=== PATIENT | female | born 1940 | race Caucasian/White ===

== ENCOUNTER → 2017-07-23 | Outpatient (CLI) | payer OTHER, BC | LOC: FIMAGING 11:09 | PROVIDERS: ATTEND Family Medicine | DX: Z12.31 Encounter for screening mammogram for malignant neoplasm of breast (principal) | CPT/HCPCS: G0202 ==

== ENCOUNTER → 2017-07-31 | Outpatient (CLI) | payer OTHER, BC | LOC: FIMAGING 12:55 | PROVIDERS: ATTEND Family Medicine | DX: R91.1 Solitary pulmonary nodule (principal); N20.0 Calculus of kidney; E04.1 Nontoxic single thyroid nodule; M81.0 Age-related osteoporosis without current pathological fracture; Z79.899 Other long term (current) drug therapy ==

== ENCOUNTER → 2017-09-15 | Outpatient (CLI) | payer OTHER, BC | LOC: FIMAGING 10:20 | PROVIDERS: ATTEND Family Medicine | DX: Z13.820 Encounter for screening for osteoporosis (principal); M81.0 Age-related osteoporosis without current pathological fracture ==

== ENCOUNTER 2017-10-20 10:02 | Emergency (ER) | payer OTHER, BC ==
[2017-10-20 10:41] LABS: PLATELET COUNT 162 10^3/uL (150-400)
[2017-10-20 11:38] VITALS: BP 139/64; PULSE 59; RESP 14; TEMP 97.5; O2SAT 95
--- NOTE | 2017-10-20 11:51 | EDPHY ---
H & P Stated Complaint: lump left side of neck, pain same location 2 weeks ago Time Seen by Provider: 10/20/17 10:20 HPI/ROS: Chief Complaint: Lump on neck History of Present Illness: This is a 77 year old female with ongoing thyroid issues who presents to the emergency department for evaluation of a nodule on her neck. She reports it developed approximately 3 days ago. It is slightly tender. She denies precipitating factors. She denies alleviating or aggravating factors. No associated signs or symptoms including no fever, no trouble talking or swallowing, no trouble breathing. She reports she is flying to the [facility] for a health evaluation next Sunday. Review of Systems: A 10 point review of systems was obtained and other than described above was negative. - Personal History Current Tetanus/Diphtheria Vaccine: Yes Current Tetanus Diphtheria and Acellular Pertussis (TDAP): Yes Tetanus Vaccine Date: 2008 - Medical/Surgical History Hx Asthma: No Hx Chronic Respiratory Disease: No Hx Diabetes: No Hx Cardiac Disease: No Hx Renal Disease: No Hx Cirrhosis: No Hx Alcoholism: No Hx HIV/AIDS: No Hx Splenectomy or Spleen Trauma: No Other PMH: hypothyroid, osteoporosis. back pain, foot sx - Social History Smoking Status: Never smoked - Physical Exam Exam: General: Alert, NAD Eyes: PERRLA. ENT: Mucous membranes moist. Oropharynx unremarkable. No hoarseness, no drooling , no trismus, no stridor. Lungs: CTAB Cardiac: RRR Skin: Small mobile lesion noted on the left side of the neck near the thyroid. Neurological: A&OX4. Strength and sensation intact. Constitutional: Initial Vital Signs Temperature (C) 36.6 C 10/20/17 10:05 Heart Rate 77 10/20/17 10:05 Respiratory Rate 20 10/20/17 10:05 Blood Pressure 138/71 H 10/20/17 10:05 O2 Sat (%) 96 10/20/17 10:05 O2 Delivery Mode Room Air Allergies/Adverse Reactions: codeine [Codeine] Allergy (Verified 10/20/17 10:04) Penicillins Allergy (Verified 10/20/17 10:04) Home Medications: Medication Instructions Recorded Acephex 02/18/13 Multivitamins [Tab-A-Ozzie] 1 each PO DAILY 02/18/13 Nulev 02/18/13 Vagifem 02/18/13 Methimazole 10/20/17 Medical Decision Making - Diagnostics Imaging: Discussed imaging studies w/ reports analyst Radiologist ED Course/Re-evaluation: Patient seen under the supervision of my secondary supervising physician Dr. Casper Rasheed. Patient presents with a neck lesion. She is non toxic. US shows benign appearing lesions. She is following up with the [facility] next week and will discuss these with her doctor. Return precautions given. Differential Diagnosis: Included but not limited to cyst, abscess, malignancy - Data Points Laboratory Results: Laboratory Results 10/20/17 10:34 10/20/17 10:34 Departure - Departure Disposition: Home, Routine, Self-Care Clinical Impression: Lesion of neck Condition: Good Instructions: Hyperthyroidism (ED) Additional Instructions: Follow-up with your doctors as already arranged If symptoms worsen or new symptoms develop return to the emergency room for recheck Referrals: Dilia Navas MD [Primary Care Provider] - As per Instructions
== END 2017-10-20 12:01 | disposition home or self-care (01) ==
DX: L98.9 Disorder of the skin and subcutaneous tissue, unspecified (principal)

== ENCOUNTER → 2017-10-30 | Outpatient (CLI) | payer OTHER, BC | LOC: FIMAGING 08:43 | PROVIDERS: ATTEND Internal Medicine Endocrinology, Diabetes & Metabolism | DX: E05.90 Thyrotoxicosis, unspecified without thyrotoxic crisis or storm (principal) | CPT/HCPCS: 78014; A9516; 84481-90 ==

== ENCOUNTER → 2017-11-13 | Outpatient (CLI) | payer OTHER, BC | LOC: FIMAGING 13:47 | PROVIDERS: ATTEND Internal Medicine Endocrinology, Diabetes & Metabolism | DX: E05.00 Thyrotoxicosis with diffuse goiter without thyrotoxic crisis or storm (principal) | CPT/HCPCS: 79005; A9517 ==

== ENCOUNTER → 2018-04-10 | Outpatient (CLI) | payer OTHER, BC | LOC: FIMAGING 10:14 | PROVIDERS: ATTEND Internal Medicine Endocrinology, Diabetes & Metabolism | DX: E03.4 Atrophy of thyroid (acquired) (principal) ==

== ENCOUNTER 2018-07-26 09:59 | Emergency (ER) | payer OTHER, BC ==
[2018-07-26 11:17] LABS: PLATELET COUNT 164 10^3/uL (150-400)
[2018-07-26 11:25] LABS: INR 0.9 (0.83-1.16); PROTIME(PATIENT) 12.4 SEC (12.0-15.0)
--- NOTE | 2018-07-26 11:28 | EDPHY ---
H & P Time Seen by Provider: 07/26/18 10:27 HPI/ROS: HPI Shortness of breath. 77-year-old female by private vehicle. This patient reports that last [place] when she noted she felt unusually short of breath. She then reports that this morning while walking she also noted that she felt unusually short of breath and felt like she was working hard to breathe. She has not had this sensation before. She spends a good amount of her time up an [place] and does not think it has anything to do with the altitude she has not been symptomatic in [place] in the past. She has no history of COPD or reactive airway disease. She is not a smoker. Denies any cardiac disease history. She has no associated chest pain. No cough. No fever. ROS: Constitutional: No fever, no chills. No weakness. Eyes: No discharge. No changes in vision. ENT: No sore throat. No nasal congestion or rhinorrhea. Respiratory: No cough. As. Cardiac: No chest pain, no palpitations. Gastrointestinal: No abdominal pain, no vomiting, no diarrhea. Genitourinary: No hematuria. No dysuria or increased frequency with urination. Musculoskeletal: No back pain. No neck pain. No myalgias or arthralgias. Skin: No rashes. Neurological: No headache. No focal weakness or altered sensation. Past medical history: Hypothyroid, osteoporosis, back pain chronic, foot surgery. Social history: Here by herself. As above. No alcohol. Nonsmoker. Physical Exam: General Appearance: Alert, no distress. This patient is responding to questions appropriately and in full sentences. This patient appears well- hydrated and well-nourished. Eyes: Pupils equal and round no pallor or injection. No lid edema, erythema or injection. Respiratory: There are no retractions, lungs are clear to auscultation with good air movement bilaterally. Cardiovascular: Regular rate and rhythm. No murmur. Gastrointestinal: Abdomen is soft and nontender, no masses, bowel sounds normal. No focal tenderness at McBurney's point. No Cruz sign. Neurological: Motor sensory function is grossly intact. Cranial nerves are normal. Gait is normal. Skin: Warm and dry, no rashes. Musculoskeletal: Neck is supple and nontender. Extremities are symmetrical. No lower extremity edema. All joints range without pain or impingement. Psychiatric: No agitation. No depression. Database: EKG: EKG time is 10:56 a.m.; EKG shows a narrow complex normal sinus rhythm with a ventricular rate of 61. The MS, QRS, QT intervals are within normal limits. There are no ST-T wave changes indicative of ischemic or injury pattern. No evidence of right heart strain. Interpreted by me. Imaging: Chest x-ray; the cardiac mediastinal silhouette is unremarkable. No evidence of infiltrate or pneumothorax. No acute cardiopulmonary disease process noted. Interpreted by me. Procedures: Emergency department course: Triage vital signs reviewed. She is moderately hypertensive. Vital signs are otherwise normal. Room air pulse oximetry is 96%. IV was placed. She was placed on a environmental monitoring specialist. EKG obtained and reviewed by myself. 12:15 p.m., the patient was re-evaluated, resting comfortably at this time. Her vital signs have remained normal throughout her emergency department course. Blood pressure is currently 131/72. court recording monitor shows a narrow complex sinus rhythm with ventricular rate of 68. Pulse oximetry has been 96% to 98% on room air. She has remained asymptomatic. I discussed results of her emergency department workup. There have been no red flags. I discussed observation admission overnight. She does not want to do this. The patient competently engages in shared decision making. They demonstrate capacitance to make decisions. She feels comfortable going home. I will have her follow up with Cardiology on Sunday. She has seen Dr. Lugo in the past. Return to emergency department precautions were thoroughly discussed with her. All of her questions were answered. She was discharged from the emergency department in good condition. Differential Diagnosis: The differential diagnosis on this patient includes but is not limited to bronchitis, congestive heart failure, acute coronary syndrome, reactive airway disease. This represents a partial list of diagnoses considered. These considerations are based on history, physical exam, past history, reassessment and diagnostic testing. Smoking Status: Never smoked Constitutional: Initial Vital Signs Temperature (C) 36.4 C 07/26/18 10:04 Heart Rate 68 07/26/18 10:04 Respiratory Rate 18 07/26/18 10:04 Blood Pressure 165/78 H 07/26/18 10:04 O2 Sat (%) 96 07/26/18 10:04 O2 Delivery Mode Room Air Allergies/Adverse Reactions: codeine [Codeine] Allergy (Verified 07/26/18 10:06) Penicillins Allergy (Verified 07/26/18 10:06) Home Medications: Medication Instructions Recorded Acephex 02/18/13 Multivitamins [Tab-A-Ozzie] 1 each PO DAILY 02/18/13 Nulev 02/18/13 Vagifem 02/18/13 Methimazole 10/20/17 Medical Decision Making - Diagnostics Imaging Results: Imaging Impressions Chest X-Ray 07/26/18 10:28 Impression: Normal chest x-ray. - Data Points Laboratory Results: Laboratory Results 07/26/18 11:05 07/26/18 11:05 07/26/18 07/26/18 07/26/18 11:30 11:05 11:05 WBC RBC Hgb Hct MCV MCH MCHC RDW Plt Count MPV Neut % (Auto) Lymph % (Auto) [place] % (Auto) Eos % (Auto) Baso % (Auto) Nucleat RBC Rel Count Absolute Neuts (auto) Absolute Lymphs (auto) Absolute Monos (auto) Absolute Eos (auto) Absolute Basos (auto) Absolute Nucleated RBC Immature Gran % Immature Gran # PT 12.4 SEC SEC (12.0-15.0) INR 0.90 (0.83-1.16) APTT 24.3 SEC SEC (23.0-38.0) D-Dimer 0.30 ug/mLFEU ug/mLFEU (0.00-0.50) Sodium 141 mEq/L mEq/L (135-145) Potassium 4.4 mEq/L mEq/L (3.5-5.2) Chloride 112 mEq/L H mEq/L (97-110) Carbon Dioxide 22 mEq/l mEq/l (22-31) Anion Gap 7 mEq/L mEq/L (6-14) BUN 18 mg/dL mg/dL (7-23) Creatinine 0.7 mg/dL mg/dL (0.6-1.0) Estimated GFR > 60 Glucose 102 mg/dL H mg/dL (70-100) Calcium 9.6 mg/dL mg/dL (8.5-10.4) POC Troponin I 0.00 ng/mL ng/mL (0.00-0.08) NT-Pro-B Natriuret Pep 133 pg/mL pg/mL (0-450) TSH 2.330 uIU/mL uIU/mL (0.465-4.680) 07/26/18 11:05 WBC 5.37 10^3/uL 10^3/uL (3.80-9.50) RBC 5.00 10^6/uL 10^6/uL (4.18-5.33) Hgb 16.1 g/dL g/dL (12.6-16.3) Hct 47.8 % H % (38.0-47.0) MCV 95.6 fL fL (81.5-99.8) MCH 32.2 pg pg (27.9-34.1) MCHC 33.7 g/dL g/dL (32.4-36.7) RDW 13.2 % % (11.5-15.2) Plt Count 164 10^3/uL 10^3/uL (150-400) MPV 11.2 fL fL (8.7-11.7) Neut % (Auto) 61.9 % % (39.3-74.2) Lymph % (Auto) 24.2 % % (15.0-45.0) [place] % (Auto) 10.8 % % (4.5-13.0) Eos % (Auto) 2.2 % % (0.6-7.6) Baso % (Auto) 0.7 % % (0.3-1.7) Nucleat RBC Rel Count 0.0 % % (0.0-0.2) Absolute Neuts (auto) 3.32 10^3/uL 10^3/uL (1.70-6.50) Absolute Lymphs (auto) 1.30 10^3/uL 10^3/uL (1.00-3.00) Absolute Monos (auto) 0.58 10^3/uL 10^3/uL (0.30-0.80) Absolute Eos (auto) 0.12 10^3/uL 10^3/uL (0.03-0.40) Absolute Basos (auto) 0.04 10^3/uL 10^3/uL (0.02-0.10) Absolute Nucleated RBC 0.00 10^3/uL 10^3/uL (0-0.01) Immature Gran % 0.2 % % (0.0-1.1) Immature Gran # 0.01 10^3/uL 10^3/uL (0.00-0.10) PT INR APTT D-Dimer Sodium Potassium Chloride Carbon Dioxide Anion Gap BUN Creatinine Estimated GFR Glucose Calcium POC Troponin I NT-Pro-B Natriuret Pep TSH Point of Care Test Results: Chemistry 07/26/18 11:30 POC Troponin I 0.00 ng/mL ng/mL (0.00-0.08) Departure - Departure Disposition: Home, Routine, Self-Care Clinical Impression: Dyspnea Condition: Good Instructions: Dyspnea (ED) Additional Instructions: Read and follow provided instructions. Follow-up with your internet architect, Dr. Lugo, at [facility], on Sunday as discussed. You should have an echocardiogram arranged through Cardiology to be done at that time early next week. Avoid strenuous physical activity. Return to the emergency department for worsening symptoms, were worsening shortness of breath, chest pain, fever, cough or other serious concerns. Referrals: [facility] [Provider Group] - As per Instructions
[2018-07-26 12:21] VITALS: BP 129/78
--- NOTE | 2018-07-26 15:19 | CPEKG ---
Test Reason : OPEN Blood Pressure : / mmHG Vent. Rate : 061 BPM Atrial Rate : 061 BPM P-R Int : 146 ms QRS Dur : 085 ms QT Int : 405 ms P-R-T Axes : 018 008 008 degrees QTc Int : 408 ms Sinus rhythm Confirmed by Nadia Mcadams ([id number]) on 07/26/2018 3:18:44 PM Referred By: Confirmed By:Nadia Mcadams
== END 2018-07-26 12:54 | disposition home or self-care (01) ==
LOC: SUPCPDRO 09:59
DX: R06.00 Dyspnea, unspecified (principal); E03.9 Hypothyroidism, unspecified; M54.9 Dorsalgia, unspecified; G89.29 Other chronic pain; M81.0 Age-related osteoporosis without current pathological fracture
CPT/HCPCS: 84484-PO

== ENCOUNTER → 2018-08-23 | Outpatient (CLI) | payer OTHER, BC | LOC: BHFA 14:00 | PROVIDERS: ATTEND Internal Medicine Cardiovascular Disease | DX: R06.02 Shortness of breath (principal) ==

== ENCOUNTER → 2018-08-28 | Outpatient (CLI) | payer OTHER, BC | LOC: FIMAGING 07:37 | PROVIDERS: ATTEND Radiology Diagnostic Radiology | DX: I83.811 Varicose veins of right lower extremity with pain (principal) ==

== ENCOUNTER → 2018-09-06 | Outpatient (CLI) | payer OTHER, BC | LOC: FIMAGING 08:31 | PROVIDERS: ATTEND Family Medicine | DX: Z12.31 Encounter for screening mammogram for malignant neoplasm of breast (principal); R06.02 Shortness of breath; R94.39 Abnormal result of other cardiovascular function study | CPT/HCPCS: 78452; 93017; A9500; J2785 ==

== ENCOUNTER 2018-10-02 07:28 | Day surgery (SDC) | payer OTHER, BC ==
[2018-10-02] MEDS ORDERED: fentaNYL 100 MCG/2 ML INJ IVP PRN (07:54)
[2018-10-02] MEDS ORDERED: GLUCAGON HCL 1 MG VIAL IVP PRN (07:54)
[2018-10-02] MEDS ORDERED: HEPARIN 10,000 UNIT/10 ML MDV (1,000 UNIT/ML) IVP PRN (07:54)
[2018-10-02] MEDS ORDERED: ceFAZolin 2 GM/DEXTROSE 100 ML IV ONE (07:54)
[2018-10-02] MEDS ORDERED: NS 1,000 ML IV ONE (07:54)
[2018-10-02] MEDS ORDERED: NALOXONE HCL 0.4 MG/ML INJ IVP PRN (07:54)
[2018-10-02] MEDS ORDERED: PROTAMINE SULFATE 50 MG/5 ML VIAL IVP PRN (07:54)
[2018-10-02] MEDS ORDERED: MEPERIDINE 25 MG/ML SYR IVP PRN (07:54)
[2018-10-02] MEDS ORDERED: MIDAZOLAM 2 MG/2 ML VIAL IVP PRN (07:54)
[2018-10-02] MEDS ORDERED: ALTEPLASE 2 MG VIAL IVP PRN (07:54)
[2018-10-02] MEDS ORDERED: FLUMAZENIL 0.5 MG/5 ML MDV IVP PRN (07:54)
[2018-10-02] MEDS ORDERED: ONDANSETRON 4 MG/2 ML VIAL IVP ONE (07:54)
[2018-10-02] MEDS ORDERED: SODIUM TETRADECYL SULFATE 3% 2 ML VIAL IV ONE (08:00)
[2018-10-02] MEDS ORDERED: LIDO/EPI 1% **for epidural** 30 ML SDV ONE (08:01)
[2018-10-02] MEDS ORDERED: NA BICARBONATE 50 MEQ/50 ML VIAL ONE (08:04)
--- NOTE | 2018-10-02 09:40 | PDPROPOC ---
Sedation Plan of Care Sedation Plan of Care: vital signs stable, mental status noted, patient educated of risks, benefits, alternatives, patient can tolerate sedation ASA Classification: ASA 2 Planned drugs: fentanyl, midazolam Mallampati Score: Class 2 Mallampati Reference Image: Patient passed 3-3-2 rule?: Yes
--- NOTE | 2018-10-02 09:40 | PDGENHP ---
History & Physical Chief Complaint: RT VARICOSE VEINS History of Present Illness: PAIN AND SWELLING Pertinent Past, Social, Family History: LAMINECTOMY, CHOLY, BUNIONECTOMIES, CATARACTS. THYROIDS Relevant Physical Exam: NO PAIN Cardiorespiratory Assessment: RRR, CTA
[2018-10-02] MEDS ORDERED: ACETAMINOPHEN 325 MG TAB PO PRN (11:17)
[2018-10-02] MEDS ORDERED: ONDANSETRON 4 MG/2 ML VIAL IVP PRN (11:17)
--- NOTE | 2018-10-02 11:18 | PDRADPN ---
Radiology Procedure Note Date of Procedure: 10/02/18 Radiologist: Simran Craven Anesthesia: IV Sedation Pre-op Diagnosis: RLE VARICOSE VEINS Post-op Diagnosis: SAME Indication: PAIN AND SWELLING Procedure: LASER ABLATION, SCLEROTHERAPY Inf/Abcess present in the surg proc area at time of surgery?: No
[2018-10-02 12:00] VITALS: BP 132/65
== END 2018-10-02 12:02 | disposition home or self-care (01) ==
LOC: FIMAGING 07:28
PROVIDERS: ATTEND Radiology Diagnostic Radiology
DX: I83.811 Varicose veins of right lower extremity with pain (principal); I83.891 Varicose veins of right lower extremity with other complications
CPT/HCPCS: J0690; J2250; J2310; J3010

== ENCOUNTER → 2018-10-17 | Outpatient (CLI) | payer OTHER, BC | LOC: FIMAGING 16:04 ==